=== PATIENT | male | born 1955 | race Caucasian/White ===

== ENCOUNTER 2017-07-20 07:55 | Day surgery (SDC) | payer SELFPAY ==
--- NOTE | 2017-07-20 11:35 | Operative Note ---
SURGEON: Asher Greenwood MD ANESTHESIA: MAC anesthesia. ESTIMATED BLOOD LOSS: Minimal. COMPLICATIONS: None. PREOPERATIVE DIAGNOSIS: Rectal bleeding. POSTOPERATIVE DIAGNOSES: 1. Colon polyps. 2. Diverticular disease. FINDINGS: 1. Three tiny sessile polyps in the right colon all removed with a cold biopsy. 2. One approximately 1 cm sessile polyp completely removed with a hot snare in the transverse colon. 3. Diverticular disease in the sigmoid colon. PROCEDURE PERFORMED: Colonoscopy to cecum with snare and cold biopsy polypectomy. INDICATIONS FOR PROCEDURE: This is a 62-year-old man who presents for his first colonoscopy. He has had some recent rectal bleeding. DESCRIPTION OF PROCEDURE: Patient was brought to the endoscopy suite and placed in the left lateral decubitus position. 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 A rectal exam was performed which was normal. The colonoscope was inserted and passed easily to the cecum. The appendiceal orifice and ileocecal valve were identified. The prep was good. In the right colon, there were 3 tiny sessile polyps which were completely removed with a cold biopsy forceps. In the transverse colon, there was an approximately 1 cm sessile polyp on a fold. It was completely removed with a hot snare. In the sigmoid colon, there was some significant diverticular disease. There were no other lesions seen. The colonoscope was removed. There was a greater than 10 minute withdrawal time. The patient tolerated the procedure well. We will follow his pathology to determine his need for a repeat colonoscopy. cc: Dr. Gabbi GOFF
== END 2017-07-20 07:56 ==
LOC: OPSURG 07:55
PROVIDERS: ATTEND Colon & Rectal Surgery
DX: D12.2 Benign neoplasm of ascending colon (principal); K63.5 Polyp of colon; K57.30 Diverticulosis of large intestine without perforation or abscess without bleeding
CPT/HCPCS: J2001; J2704; J7120; 45380; S1016